=== PATIENT | female | born 2000 | race American Indian/Alaskan Native ===

== ENCOUNTER 2021-01-10 17:02 | Outpatient (CLI) | payer MEDICAID ==
[2021-01-10] MEDS: TERBUTALINE 1 MG/1 ML INJ SUB-Q SCH ×3 (18:20→20:15)
[2021-01-10 22:05] VITALS: BP 126/69
== END 2021-01-10 22:02 | disposition home or self-care (01) ==
LOC: TRG 17:02 → APU 17:10 → TRG 22:02
PROVIDERS: ATTEND Obstetrics & Gynecology
DX: O62.9 Abnormality of forces of labor, unspecified (principal); Z3A.36 36 weeks gestation of pregnancy
CPT/HCPCS: 59025; 96372; J3105

== ENCOUNTER 2021-01-11 03:50 | Outpatient (CLI) | payer MEDICAID ==
[2021-01-11] MEDS ORDERED: LACTATED RINGERS 1,000 ML IV ONE (05:42)
[2021-01-12 16:12] VITALS: BP 105/69
== END 2021-01-11 07:26 | disposition home or self-care (01) ==
LOC: TRG 03:50 → APU 04:04 → TRG 07:26
PROVIDERS: ATTEND Obstetrics & Gynecology
DX: O62.9 Abnormality of forces of labor, unspecified (principal); Z3A.36 36 weeks gestation of pregnancy
CPT/HCPCS: 59025; 96360; J7120

== ENCOUNTER 2021-01-12 16:15 | Outpatient (CLI) | payer MEDICAID ==
[2021-01-12 17:02] VITALS: BP 105/69
[2021-01-12] MEDS ORDERED: LACTATED RINGERS 1,000 ML IV ONE (18:00)
--- NOTE | 2021-01-12 18:26 | Ultrasound Report ---
ULTRASOUND OBSTETRIC LIMITED ULTRASOUND BIOPHYSICAL PROFILE INDICATION / CLINICAL INFORMATION: FAHAD. well-being. Decreased motion. Clinical Gestational Age (GA) in weeks, days: 36, 3 TECHNIQUE: Transabdominal. COMPARISON: None available. FINDINGS: BREATHING MOVEMENT = 2 GROSS BODY MOVEMENT = 2 TONE = 2 QUALITATIVE AMNIOTIC FLUID VOLUME = 2 TOTAL BIOPHYSICAL SCORE = 8/8 HEART RATE (beats per minute): 149 AMNIOTIC FLUID INDEX (cm) = 10.9 (normal = 7-24 cm) PRESENTATION: Cephalic. ADDITIONAL FINDINGS: Placenta is right anterior with no acute abnormality. IMPRESSION: 1. Biophysical Score = 8/8 2. No acute sonographic abnormality. Signer Name: Britt Richter MD Signed: 01/12/2021 6:22 PM Workstation Name: [id number]
[2021-01-12 18:31] LABS: Amphetamine Screen,Urine Negative; Benzodiazepines Screen,Urine Negative; Cannabinoid Screen,Urine Negative; Cocaine Screen,Urine Negative; Methadone Screen,Urine Negative; Opiate Screen,Urine Negative
--- NOTE | 2021-01-12 20:12 | Ultrasound Report ---
Please see combined report earlier today dictated by Dr. Richter. Signer Name: Manny Nieves MD Signed: 01/12/2021 8:08 PM Workstation Name: [id number]
== END 2021-01-12 19:21 | disposition home or self-care (01) ==
LOC: TRG 16:15 → APU 16:19 → TRG 19:21
PROVIDERS: ATTEND Obstetrics & Gynecology
DX: O36.8130 Decreased fetal movements, third trimester, not applicable or unspecified (principal); O47.03 False labor before 37 completed weeks of gestation, third trimester; Z3A.36 36 weeks gestation of pregnancy
CPT/HCPCS: 59025; 76815; 76819; 80307

== ENCOUNTER 2021-01-28 15:52 | Inpatient (IN) | payer MEDICAID ==
[2021-01-28] MEDS ORDERED: miSOPROStol 25 MCG TAB VG PRN (16:00)
[2021-01-28] MEDS ORDERED: miSOPROStol 200 MCG TAB PR PRN (17:39)
[2021-01-28] MEDS ORDERED: ePHEDrine SULFATE 50 MG/1 ML INJ IV PRN (17:39)
[2021-01-28] MEDS ORDERED: CARBOPROST TROMETHAMINE 250 MCG/1 ML INJ IM PRN (17:39)
[2021-01-28] MEDS ORDERED: TERBUTALINE 1 MG/1 ML INJ SUB-Q PRN (17:39)
[2021-01-28] MEDS ORDERED: METHYLERGONOVINE MALEATE 0.2 MG/ML VIAL IM PRN (17:39)
[2021-01-28] MEDS ORDERED: miSOPROStol 25 MCG TAB VAGINAL PRN (17:39)
[2021-01-28] MEDS ORDERED: BUTORPHANOL 2 MG/1 ML INJ IV PRN ×2 (17:39)
[2021-01-28] MEDS ORDERED: MINERAL OIL 30 ML ORAL LIQD PO PRN (17:39)
[2021-01-28] MEDS ORDERED: LOPERAMIDE 2 MG CAP PO PRN (17:39)
[2021-01-28] MEDS ORDERED: LIDOCAINE (2%) 20 MG/1 ML VIAL 20 ML MDV INFILTRATI ONE (17:39)
[2021-01-28] MEDS ORDERED: ACETAMINOPHEN 325 MG TAB PO PRN (17:39)
[2021-01-28] MEDS ORDERED: OXYTOCIN 10 UNIT/1 ML INJ IM PRN (17:39)
--- NOTE | 2021-01-28 17:46 | History and Physical Report ---
History of Present Illness Date of examination: 01/28/21 Chief complaint: leakage of fluid History of present illness: 21 yo G1 at 38w5d (RAJANI 02/06/21) c/b SMA carrier, FH autism presenting with rupture of membranes, clear fluid. ROMPLUS pos. Intermittent contractions. Denies VB. +FM. Denies PIH symptoms. PNC reviewed O pos, Ab neg HBSAG NR, HIV NR, Rubella immunes, RPR neg, varicella immune, GCCT neg H/H 12.5/37.9 SMA carrier GBS neg Past History Past Medical History: no pertinent history Past Surgical History: no surgical history Family/Genetic History: none Social history: no significant social history - Obstetrical History Expected Date of Delivery: 02/06/21 Actual Gestation: 38 Week(s) 5 Day(s) : 1 Medications and Allergies Allergies Allergy/AdvReac Type Severity Reaction Status Date / Time tomato Allergy Severe Anaphylaxis Verified 01/12/21 16:59 Review of Systems All systems: negative (except HPI) - Vital Signs Vital signs: Vital Signs Pulse BP 88 123/77 01/28/21 16:14 01/28/21 16:14 Temp Pulse Resp BP Pulse Ox 98.1 F 77 22 123/77 100 01/28/21 16:18 01/28/21 17:40 01/28/21 16:18 01/28/21 16:18 01/28/21 17:40 - Obstetrical FHR: category 1 Uterine Contraction Monitor Mode: External Cervical Dilatation: 0.5 Uterine Contraction Pattern: Irregular Results Abnormal lab results 01/28/21 Range/Units 16:30 Membranes Rupture Positive A (Negative) All other labs normal. Assessment and Plan - Patient Problems (1) PROM (premature rupture of membranes) Current Visit: Yes Status: Acute Plan to address problem: Proceed with cytotec for cervical ripening for PROM, then pitocin --GBS neg --IV pain medication as needed, epidural is available --Anticipate
[2021-01-28] MEDS ORDERED: OXYTOCIN DRIP 30 UNITS/500 ML BAG IV SCH ×2 (18:00)
[2021-01-28 18:43] LABS: Hematocrit 34.7 % (30.3-42.9); Hemoglobin 11.8 gm/dl (10.1-14.3); Mean Corpuscular HGB Conc 34 % (30-34); Mean Corpuscular Volume 87 fl (79-97); Platelet Count 193 K/mm3 (140-440); Red Blood Count 3.98 M/mm3 (3.65-5.03); Red Cell Distribution Width 14.9 % (13.2-15.2)
[2021-01-28] MEDS: LACTATED RINGERS 1,000 ML IV SCH (23:05)
[2021-01-29 08:15] LABS: Hematocrit 34.2 % (30.3-42.9); Hemoglobin 11.7 gm/dl (10.1-14.3); Mean Corpuscular HGB Conc 34 % (30-34); Mean Corpuscular Volume 84 fl (79-97); Platelet Count 176 K/mm3 (140-440); Red Blood Count 4.05 M/mm3 (3.65-5.03)
[2021-01-29] MEDS ORDERED: AMPICILLIN/NS 2 GM/100 ML 2 GM/100 ML BAG IV ONE (08:36)
[2021-01-29] MEDS ORDERED: AMPICILLIN 1,000 MG in SODIUM CHLORIDE 0.9% 50 ML IV SCH (09:00)
--- NOTE | 2021-01-29 09:21 | Progress Note ---
Assessment and Plan A: IUP@ 38 wks with PROM GBS unknown CAT II FHT P: Continue monitoring Start Ampicillin per GBS protocal IFM/IUPC placed Pain med/Epidural prn Anticipate Dr Angel consulted Subjective - Subjective Date of service: 01/29/21 Principal diagnosis: IUP@term with PROM Patient reports: loss of fluid, movement normal, contractions Objective - Vital Signs Vital Signs: Vital Signs - 12hr 01/28/21 01/28/21 01/28/21 21:18 21:23 21:30 Temperature Pulse Rate 61 65 Respiratory Rate Blood Pressure O2 Sat by Pulse 99 99 96 Oximetry 01/28/21 01/28/21 01/28/21 21:35 21:40 21:45 Temperature Pulse Rate 84 88 106 H Respiratory Rate Blood Pressure O2 Sat by Pulse 99 100 99 Oximetry 01/28/21 01/28/21 01/28/21 21:50 21:55 22:00 Temperature Pulse Rate 62 64 53 L Respiratory Rate Blood Pressure O2 Sat by Pulse 100 99 100 Oximetry 01/28/21 01/28/21 01/28/21 22:05 22:10 22:15 Temperature Pulse Rate 57 L 60 58 L Respiratory Rate Blood Pressure O2 Sat by Pulse 100 99 100 Oximetry 01/28/21 01/28/21 01/28/21 22:20 22:25 22:30 Temperature Pulse Rate 60 64 60 Respiratory Rate Blood Pressure O2 Sat by Pulse 100 100 100 Oximetry 01/28/21 01/28/21 01/28/21 22:35 22:40 22:45 Temperature Pulse Rate 65 69 71 Respiratory Rate Blood Pressure O2 Sat by Pulse 100 100 100 Oximetry 01/28/21 01/28/21 01/28/21 22:50 22:57 23:02 Temperature Pulse Rate 79 74 73 Respiratory Rate Blood Pressure O2 Sat by Pulse 100 100 100 Oximetry 01/28/21 01/28/21 01/28/21 23:07 23:12 23:17 Temperature Pulse Rate 71 74 59 L Respiratory Rate Blood Pressure O2 Sat by Pulse 100 100 100 Oximetry 01/28/21 01/28/21 01/28/21 23:22 23:27 23:32 Temperature Pulse Rate 65 64 76 Respiratory Rate Blood Pressure O2 Sat by Pulse 100 99 100 Oximetry 01/28/21 01/28/21 01/28/21 23:37 23:42 23:49 Temperature Pulse Rate 74 69 83 Respiratory Rate Blood Pressure O2 Sat by Pulse 100 100 98 Oximetry 01/28/21 01/28/21 01/29/21 23:54 23:59 00:00 Temperature 98.1 F Pulse Rate 70 71 Respiratory 16 Rate Blood Pressure O2 Sat by Pulse 98 100 Oximetry 01/29/21 01/29/21 01/29/21 00:04 00:09 00:14 Temperature Pulse Rate 66 69 69 Respiratory Rate Blood Pressure 124/65 O2 Sat by Pulse 99 99 99 Oximetry 01/29/21 01/29/21 01/29/21 00:19 00:24 00:29 Temperature Pulse Rate 91 H 64 73 Respiratory Rate Blood Pressure O2 Sat by Pulse 100 100 100 Oximetry 01/29/21 01/29/21 01/29/21 00:34 00:39 00:44 Temperature Pulse Rate 67 67 70 Respiratory Rate Blood Pressure O2 Sat by Pulse 100 100 100 Oximetry 01/29/21 01/29/21 01/29/21 00:49 00:54 00:59 Temperature Pulse Rate 70 92 H 65 Respiratory Rate Blood Pressure O2 Sat by Pulse 99 100 100 Oximetry 01/29/21 01/29/21 01/29/21 01:06 01:11 01:16 Temperature Pulse Rate 74 63 58 L Respiratory Rate Blood Pressure O2 Sat by Pulse 100 100 100 Oximetry 01/29/21 01/29/21 01/29/21 01:21 01:26 01:31 Temperature Pulse Rate 55 L 60 71 Respiratory Rate Blood Pressure O2 Sat by Pulse 100 100 100 Oximetry 01/29/21 01/29/21 01/29/21 01:36 01:41 01:46 Temperature Pulse Rate 77 85 79 Respiratory Rate Blood Pressure O2 Sat by Pulse 100 100 100 Oximetry 01/29/21 01/29/21 01/29/21 01:51 01:56 02:01 Temperature Pulse Rate 79 80 78 Respiratory Rate Blood Pressure O2 Sat by Pulse 100 100 100 Oximetry 01/29/21 01/29/21 01/29/21 02:06 02:11 02:16 Temperature Pulse Rate 84 71 80 Respiratory Rate Blood Pressure O2 Sat by Pulse 99 99 99 Oximetry 01/29/21 01/29/21 01/29/21 02:21 02:26 02:31 Temperature Pulse Rate 67 81 79 Respiratory Rate Blood Pressure O2 Sat by Pulse 100 98 99 Oximetry 01/29/21 01/29/21 01/29/21 02:36 02:41 02:46 Temperature Pulse Rate 68 75 89 Respiratory Rate Blood Pressure O2 Sat by Pulse 99 99 100 Oximetry 01/29/21 01/29/21 01/29/21 02:51 02:56 03:01 Temperature Pulse Rate 59 L 72 69 Respiratory Rate Blood Pressure O2 Sat by Pulse 100 100 99 Oximetry 01/29/21 01/29/21 01/29/21 03:06 03:11 03:16 Temperature Pulse Rate 79 69 68 Respiratory Rate Blood Pressure O2 Sat by Pulse 98 100 99 Oximetry 01/29/21 01/29/21 01/29/21 03:21 03:28 03:33 Temperature Pulse Rate 54 L 66 59 L Respiratory Rate Blood Pressure O2 Sat by Pulse 100 98 98 Oximetry 01/29/21 01/29/21 01/29/21 03:38 03:42 03:43 Temperature 98.2 F Pulse Rate 57 L 53 L 58 L Respiratory Rate Blood Pressure 120/68 O2 Sat by Pulse 98 98 Oximetry 01/29/21 01/29/21 01/29/21 03:48 03:53 03:58 Temperature Pulse Rate 56 L 63 61 Respiratory Rate Blood Pressure O2 Sat by Pulse 99 99 99 Oximetry 01/29/21 01/29/21 01/29/21 04:04 04:09 04:14 Temperature Pulse Rate 62 53 L 56 L Respiratory Rate Blood Pressure O2 Sat by Pulse 100 99 100 Oximetry 01/29/21 01/29/21 01/29/21 04:19 04:24 04:29 Temperature Pulse Rate 56 L 53 L 54 L Respiratory Rate Blood Pressure O2 Sat by Pulse 100 99 99 Oximetry 01/29/21 01/29/21 01/29/21 04:37 04:42 04:47 Temperature Pulse Rate 58 L 55 L 56 L Respiratory Rate Blood Pressure O2 Sat by Pulse 100 99 98 Oximetry 01/29/21 01/29/21 01/29/21 04:52 04:57 05:02 Temperature Pulse Rate 60 57 L 53 L Respiratory Rate Blood Pressure O2 Sat by Pulse 98 99 98 Oximetry 01/29/21 01/29/21 01/29/21 05:07 05:12 05:17 Temperature Pulse Rate 56 L 55 L 59 L Respiratory Rate Blood Pressure O2 Sat by Pulse 98 99 99 Oximetry 01/29/21 01/29/21 01/29/21 05:22 05:27 05:32 Temperature Pulse Rate 56 L 59 L 57 L Respiratory Rate Blood Pressure O2 Sat by Pulse 99 98 99 Oximetry 01/29/21 01/29/21 01/29/21 05:37 05:42 05:47 Temperature Pulse Rate 60 57 L 58 L Respiratory Rate Blood Pressure O2 Sat by Pulse 98 98 98 Oximetry 01/29/21 01/29/21 01/29/21 05:52 05:57 06:02 Temperature Pulse Rate 59 L 65 90 Respiratory Rate Blood Pressure O2 Sat by Pulse 98 100 100 Oximetry 01/29/21 01/29/21 01/29/21 06:07 06:12 06:17 Temperature Pulse Rate 66 61 68 Respiratory Rate Blood Pressure O2 Sat by Pulse 100 98 99 Oximetry 01/29/21 01/29/21 01/29/21 06:22 06:27 06:32 Temperature Pulse Rate 71 57 L 55 L Respiratory Rate Blood Pressure O2 Sat by Pulse 99 99 99 Oximetry 01/29/21 01/29/21 01/29/21 06:37 06:42 06:47 Temperature Pulse Rate 78 73 63 Respiratory Rate Blood Pressure O2 Sat by Pulse 99 99 100 Oximetry 01/29/21 01/29/21 01/29/21 06:52 06:57 07:02 Temperature Pulse Rate 81 63 81 Respiratory Rate Blood Pressure O2 Sat by Pulse 100 99 100 Oximetry 01/29/21 01/29/21 01/29/21 07:07 07:12 07:15 Temperature 98.8 F Pulse Rate 78 79 Respiratory 18 Rate Blood Pressure O2 Sat by Pulse 99 100 99 Oximetry 01/29/21 01/29/21 01/29/21 07:17 07:22 07:27 Temperature Pulse Rate 87 75 75 Respiratory Rate Blood Pressure O2 Sat by Pulse 99 99 99 Oximetry 01/29/21 01/29/21 01/29/21 07:32 07:37 07:42 Temperature Pulse Rate 72 71 65 Respiratory Rate Blood Pressure O2 Sat by Pulse 100 98 100 Oximetry 01/29/21 01/29/21 01/29/21 07:48 07:50 07:53 Temperature Pulse Rate 86 70 Respiratory 18 Rate Blood Pressure O2 Sat by Pulse 100 98 Oximetry 01/29/21 01/29/21 01/29/21 07:54 07:58 08:01 Temperature Pulse Rate 69 62 68 Respiratory Rate Blood Pressure 138/88 O2 Sat by Pulse 99 91 Oximetry 01/29/21 01/29/21 01/29/21 08:03 08:06 08:08 Temperature Pulse Rate 60 65 66 Respiratory Rate Blood Pressure O2 Sat by Pulse 97 92 99 Oximetry 01/29/21 01/29/21 01/29/21 08:13 08:18 08:23 Temperature Pulse Rate 65 72 67 Respiratory Rate Blood Pressure O2 Sat by Pulse 98 98 97 Oximetry 01/29/21 01/29/21 01/29/21 08:28 08:33 08:38 Temperature Pulse Rate 65 68 73 Respiratory Rate Blood Pressure O2 Sat by Pulse 97 97 98 Oximetry 01/29/21 01/29/21 01/29/21 08:43 08:48 08:53 Temperature Pulse Rate 85 84 76 Respiratory Rate Blood Pressure O2 Sat by Pulse 100 100 100 Oximetry 01/29/21 01/29/21 01/29/21 08:54 08:58 09:03 Temperature Pulse Rate 82 77 72 Respiratory Rate Blood Pressure 134/83 O2 Sat by Pulse 100 99 Oximetry 01/29/21 01/29/21 09:08 09:13 Temperature Pulse Rate 82 81 Respiratory Rate Blood Pressure O2 Sat by Pulse 100 100 Oximetry - Exam Breasts: normal Abdomen: Present: normal appearance, soft, normal bowel sounds, other (GRAVID) Vulva: both: normal Uterus: Present: normal FHR: category 2 FHR comments: FHT 140 with mod [id number] repetitive late decels Uterine Contraction Monitor Mode: External Cervical Dilatation: 2 Cervical Effacement Percentage: 60 station: -3 Uterine Contraction Pattern: Regular Uterine Tone Measurement Phase: Resting Uterine Contraction Intensity: Moderate Extremities: normal - Labs Labs: Abnormal Labs 01/28/21 01/29/21 16:30 07:10 RDW 13.0 L Membranes Rupture Positive A Laboratory Results - last 24 hr 01/28/21 01/28/21 01/28/21 16:30 17:53 17:53 WBC 8.3 RBC 3.98 Hgb 11.8 Hct 34.7 MCV 87 MCH 30 MCHC 34 RDW 14.9 Plt Count 193 Membranes Rupture Positive A Blood Type A POSITIVE Antibody Screen Negative 01/28/21 01/29/21 22:30 07:10 WBC 9.1 RBC 4.05 Hgb 11.7 Hct 34.2 MCV 84 MCH 29 MCHC 34 RDW 13.0 L Plt Count 176 Membranes Rupture Blood Type O POSITIVE Antibody Screen Negative
--- NOTE | 2021-01-29 09:48 | Event Note ---
Date: 01/29/21 FHT CAT I after resuscitative measures were taken. Will continue monitoring and restart Pitocin after 30 min if FHT remains a CAT I. Dr Angel was consulted.
[2021-01-29] MEDS: LACTATED RINGERS 1,000 ML IV SCH ×4 (10:00→23:59)
--- NOTE | 2021-01-29 13:16 | Anesthesia Consultation ---
Anesthesia Consult and Med Hx Date of service: 01/29/21 - Airway Anesthetic Teeth Evaluation: Good ROM Head & Neck: Adequate Mental/Hyoid Distance: Adequate Mallampati Class: Class II Intubation Access Assessment: Good - Pulmonary Exam CTA: Yes - Cardiac Exam Cardiac Exam: RRR - Pre-Operative Health Status ASA Pre-Surgery Classification: ASA2 Proposed Anesthetic Plan: Epidural - Pulmonary Hx Smoking: No Hx Asthma: No Hx Respiratory Symptoms: No SOB: No COPD: No Home Oxygen Therapy: No Hx Pneumonia: No Hx Sleep Apnea: No - Cardiovascular System Hx Hypertension: No Hx Coronary Artery Disease: No Hx Heart Attack/AMI: No Hx Angina: No Hx Percutaneous Transluminal Coronary Angioplasty (PTCA): No Hx Cardia Arrhythmia: No Hx Pacemaker: No Hx Internal Defibrillator: No Hx Valvular Heart Disease: No Hx Heart Murmur: No Hx Peripheral Vascular Disease: No - Central Nervous System Hx Neuromuscular Disorder: No Hx Seizures: No CVA: No Hx Back Pain: Yes Hx Psychiatric Problems: No - Gastrointestinal Hx Ulcer: No Hx Gastroesophageal Reflux Disease: Yes - Endocrine Hx Renal Disease: No Hx End Stage Renal Disease: No Hx Cirrhosis: No Hx Liver Disease: No Hx Insulin Dependent Diabetes: No Hx Non-Insulin Dependent Diabetes: No Hx Thyroid Disease: No Hx Hypothyroidism: No Hx Hyperthyroidism: No - Hematic Hx Anemia: No Hx Sickle Cell Disease: No - Other Systems Hx Alcohol Use: No Hx Substance Use: No Hx Cancer: No Hx Obesity: No
[2021-01-29] MEDS ORDERED: ePHEDrine SULFATE 50 MG/1 ML INJ IV PRN (13:30)
[2021-01-29] MEDS ORDERED: fentaNYL-BUPIV 2 MCG/ML-0.125% 200 MCG/100 ML BAG EPIDURAL SCH (14:00)
[2021-01-29] MEDS ORDERED: NALOXONE 2 MG/2 ML INJ IV PRN (14:00)
[2021-01-29] MEDS: AMPICILLIN/NS 1 GM/50 ML 1 GM/50 ML BAG IV SCH ×2 (14:21→18:07)
[2021-01-29] MEDS ORDERED: SODIUM CHLORIDE 0.9% 1000 ML 1,000 ML ONE (17:55)
--- NOTE | 2021-01-29 17:55 | Event Note ---
Date: 01/29/21 pt evaluated at bedside with nurses and parents in the room. FHR category I. Pelvic 360/-3 vtx and IUPC not working with blood in the chamber. Ctx irregular at this time. Same replaced. Will restart pitocin and give amnioinfusion. Continue antibiotics for prolong rupture of membranes. Discussed alternate route of delivery with section for which pt declines at this time. The risks, benefits and alternatives of vaginal vs section discussed. All questions encouraged and answered.
[2021-01-29] MEDS ORDERED: SODIUM CHLORIDE 0.9% 1000 ML 1,000 ML VG SCH (18:15)
[2021-01-29] MEDS ORDERED: METOCLOPRAMIDE 10 MG/2 ML INJ IV ONE (18:44)
[2021-01-29] MEDS ORDERED: LACTATED RINGERS 1,000 ML IV SCH (18:45)
[2021-01-29] MEDS ORDERED: ceFAZolin/Water 2 GM/20 ML 2 GM/20 ML SYRINGE IV ONE (18:52)
[2021-01-29] MEDS ORDERED: LIDOCAINE 2%/EPINEPHRINE 1:200,000 VIAL (20 ML) INFILTRATI ONE (18:54)
[2021-01-29] MEDS ORDERED: OXYTOCIN DRIP 30 UNITS/500 ML BAG IV SCH ×2 (19:00→22:55)
[2021-01-29] MEDS ORDERED: WATER FOR IRRIG STERILE 1,500 ML BOTTLE IR ONE (19:00)
[2021-01-29] MEDS ORDERED: FAMOTIDINE 20 MG/2 ML INJ IV ONE (19:00)
[2021-01-29] MEDS ORDERED: BICITRA ORAL LIQD 30ML PO ONE (19:00)
[2021-01-29] MEDS ORDERED: ceFAZolin/STERILE WATER 2 GM/20 ML SYRINGE IV ONE (19:00)
[2021-01-29] MEDS ORDERED: SODIUM CHLORIDE 0.9% IRR 1,500 ML BOTTLE IR ONE (19:00)
[2021-01-29] MEDS ORDERED: ONDANSETRON 4 MG/2 ML INJ ONE ×3 (19:05→20:38)
[2021-01-29] MEDS ORDERED: BUPIVACAINE/PF (0.25%) 2.5 MG/ML 30 ML VIAL INFILTRATI ONE ×2 (19:30)
[2021-01-29] MEDS ORDERED: dexAMETHasone 20 MG/5 ML VIAL ONE (19:36)
[2021-01-29] MEDS ORDERED: KETOROLAC 30 MG/1 ML INJ ONE (19:48)
--- NOTE | 2021-01-29 20:36 | XRay Report ---
ABDOMEN 1 VIEW 01/29/2021 INDICATION / CLINICAL INFORMATION: OR NO FIRST COUNT; instrument count. COMPARISON: None available. FINDINGS: TUBES / LINES: None. BOWEL GAS PATTERN: No significant abnormality. FREE AIR / EXTRALUMINAL GAS: None seen. ADDITIONAL FINDINGS: No significant additional findings. IMPRESSION: 1. No foreign radiodensities seen within the field of view Signer Name: Luis Barrera DO Signed: 01/29/2021 8:31 PM Workstation Name: [id number]
--- NOTE | 2021-01-29 20:44 | Progress Note ---
Spinal Anesthesia Block - Spinal Anesthesia Block Start Time: 20:30 Stop Time: 20:38 Performed by:: MARCUS SAMUELS Procedure: Patient consented for TAP block for post surgical pain management. Patient identified, monitors placed, and time out performed. TAP identified bilaterally via ultrasound. Skin prepped bilaterally with [chlorhexidine] and [22g stimuplex] needle advanced to the TAP. [Marcaine 0.25% 30ml] injected under ultrasound guidance on the [left] side. [Marcaine 0.25% 30ml] injected under ultrasound guidance on the [right] side. Negative aspiration every 5mL, No change in heart rate or rhythm. Patient tolerated the procedure well. No apparent complications seen.
--- NOTE | 2021-01-29 22:28 | Event Note ---
Date: 01/29/21 This is a late entry. Nurse called me to bedside for NRFHR. Order given by me for brethine 0.2mg SC and pt told that alternate route of delivery necessary with category III FHR. All questions encouraged and answered and consents signed. NICU and anesthesia team notified and I went to scrub for emergent section with nursing staff coming with patient. FHR repeated in the OR was in the 140's by doppler. This was shift change and I told the staff that KUB to be done post delivery with this emergent surgery.
--- NOTE | 2021-01-29 22:50 | Procedure Note ---
OB Delivery Note - Delivery Date of Delivery: 01/29/21 Surgeon: BIRDIE CHAUDHRY Estimated blood loss: other (QBL 784cc per Shonda's report) - Section Preop diagnosis: nonreassuring FHR tracing Postop diagnosis: same section procedure: primary low transverse Disposition: floor Complications: none Narrative: Date: 01/29/21 Surgeon: Birdie Chaudhry MD Preop Dx: IUP at term, Category III FHR remote from delivery with cervix 3/70/-3 vtx, prolong rupture of membranes Postop Dx: same Procedure : Emergent Primary Low Transverse Section Anesthesia: Epidural Intake: 700cc crystalloids Output: 200cc clear urine EBL: 782cc After the risks, benefits and alternatives of procedure discussed, patient signed consents and was taken to the operating room. Pt was given epidural anesthesia. After same was adequate, patient was prepped and draped in the usual sterile fashion. Man catheter was already in place and draining clear urine. Pt was given prophylactic antibiotic per protocol and time out was done Pfannenstiel skin incision was made and taken sharply to the fascia and the incision extended manually and using scissors. Superior edge of the fascia was grasped with gisela clamps and the rectus muscle using blunt dissection. Lower portion of the fascia also sharply. Rectus muscle in the midline and Peritoneal cavity entered bluntly and extended with good visualization of the bladder. Bladder blade was placed. The bladder flap w as created sharply using metzenbaum scissors. Lower uterine segment then entered transversely and amniotic sac entered manually. Uterine incision extended manually. delivered, bulb suctioned, cord clamped and baby had a strong cry on the OR table and then was handed to waiting pediatricians. Placenta then delivered completely and uterine cavity cleared of all clots and debri. The uterus was exteriorized and closed in 2 layers using 0-monocryl suture in a running locked fashion and then an additional layer of interrupted figure of sutures placed. Hemoblast placed and Excellent hemostasis noted. The gutters were cleared of clots and debri and anterior peritoneum closed using 3-0 vicryl suture and rectus muscle reapproximated using 0-vicryl suture. Rectus fascia closed with 0-vicryl suture continuously and subcutaneous tissue copiously irrigated with normal saline and re-approximated using 3-0 vicryl suture. Excellent hemostasis remains. Blue towel placed and Xray attempted to do KUB however was unable to do so without assistance, hence the skin was closed with 3-0 monocryl suture and steristrips placed. I assisted the Xray traffic signal technician and KUB was done. Pressure dressing was then applied using aseptic technique. Patient tolerated the procedure well and was taken to recovery room stable. Pt given cytotec 800mcg per rectum and methergine IM intraoperatively for uterine atony. Findings: Viable female infant, APGARS 4/4/4/7 after 1st NICU team came and took some time before they later called for assist back up NICU team who further treated infant diagnosing obstructed airway and further suctioning; I sent umbilical artery pH 7.19 and BE -5.8 drawn by circulating nurse Shonda; weight 2680g. Normal uterus, tubes and ovaries. Pathology: placenta - A at 1 minute: 4 at 5 minutes: 4 (apgars 4/4/4/7 and wt 2680g) Infant Gender: Female
[2021-01-29] MEDS ORDERED: LANOLIN/ZINC/DIMETHICONE (LANSINOH) 7 GM TP PRN (22:55)
[2021-01-29] MEDS ORDERED: IBUPROFEN 800 MG TAB PO PRN (22:55)
[2021-01-29] MEDS ORDERED: ONDANSETRON 4 MG/2 ML INJ IV PRN (22:55)
[2021-01-29] MEDS ORDERED: NALOXONE 0.4 MG/1 ML INJ IV PRN (22:55)
[2021-01-29] MEDS ORDERED: oxyCODONE /ACETAMINOPHEN 5-325MG TAB PO PRN (22:55)
[2021-01-29] MEDS ORDERED: MAGNESIUM HYDROXIDE (MOM) ORAL LIQD UDC PO PRN (22:55)
[2021-01-29] MEDS ORDERED: WITCH HAZEL/ GLYCERIN PAD TP PRN (22:55)
[2021-01-29] MEDS ORDERED: SIMETHICONE 80 MG CHEW TAB PO PRN (22:55)
[2021-01-29] MEDS ORDERED: MORPHINE 2 MG/1 ML INJ IV PRN (23:25)
--- NOTE | 2021-01-29 23:30 | Event Note ---
Date: 01/29/21 I called the nurse to check on patient on . nurse states pt c/o pain and talking on the phone. Morphine 2mg IV prn every 4hrs given and nurse instructed only to give if pt is in severe pain. nurse also states that pt had a fever of 100.9 and therefore triple antibiotics amp/gent/clinda for endomyometritis most likely with prolong rupture of membranes. Urine output satisfactory. Nurse also states that pt had elevated BP without headache for which I told the nurse, pt received methergine x1 dose in the OR for uterine atony.
[2021-01-29] MEDS: AMPICILLIN/NS 2 GM/100 ML 2 GM/100 ML BAG IV SCH (23:59)
[2021-01-30] MEDS: KETOROLAC 30 MG/1 ML INJ IV PRN ×2 (01:06→08:32)
[2021-01-30] MEDS: GENTAMICIN 300 MG in SODIUM CHLORIDE 0.9% 100 ML IV SCH (02:54)
[2021-01-30] MEDS: AMPICILLIN/NS 2 GM/100 ML 2 GM/100 ML BAG IV SCH ×3 (06:15→18:04)
--- NOTE | 2021-01-30 06:44 | Event Note ---
Date: 01/30/21 pt vitals seen and BP trending upwards. I called the nurse who states that the BP has been trending upwards and pt medicated twice for pain. PIH labs placed and labetalol 100mg bid ordered. Routine care.
--- NOTE | 2021-01-30 09:11 | Progress Note ---
Assessment and Plan POD # 1 A: S/P Primary LTCS PIH Endometritis p: Continue routine pp care Awaiting H&H & PIH labs Continue Labetalol and ABT as ordered D/C home with 24-48 hrs if stable Subjective - Subjective Date of service: 01/30/21 Principal diagnosis: IUP@term with PROM Patient reports: appetite normal, voiding normally, pain well controlled, flatus [place]: doing well, nursing well Objective - Vital Signs Latest vital signs: Vital Signs Temp Pulse Resp BP Pulse Ox 01/30/21 08:32 16 01/30/21 08:31 75 144/87 01/30/21 06:01 98.7 F 58 L 16 166/80 99 01/30/21 03:38 18 01/30/21 01:39 98.1 F 68 18 162/94 100 01/30/21 01:06 18 01/29/21 23:21 98.4 F 01/29/21 23:13 76 157/82 98 01/29/21 22:20 100.9 F H 76 151/83 97 01/29/21 21:35 99.7 F H 90 16 125/72 01/29/21 21:20 81 17 142/73 01/29/21 21:05 81 16 127/80 01/29/21 20:50 95 H 22 124/70 01/29/21 20:45 98 H 18 121/51 01/29/21 20:40 123 H 12 140/83 01/29/21 20:35 98.3 F 107 H 16 119/56 01/29/21 18:38 55 L 100 01/29/21 18:36 47 L 127/60 01/29/21 18:33 59 L 100 01/29/21 18:29 69 92 01/29/21 18:28 59 L 100 01/29/21 18:23 60 100 01/29/21 18:20 67 105/68 01/29/21 18:18 67 100 01/29/21 18:13 68 100 01/29/21 18:08 86 99 01/29/21 18:05 62 108/54 01/29/21 18:03 68 99 01/29/21 17:58 61 98 01/29/21 17:53 78 99 01/29/21 17:48 100 H 100 01/29/21 17:43 86 100 01/29/21 17:38 58 L 99 01/29/21 17:35 56 L 125/70 01/29/21 17:33 56 L 98 01/29/21 17:28 55 L 98 01/29/21 17:23 59 L 98 01/29/21 17:20 62 99/62 01/29/21 17:18 53 L 99 01/29/21 17:13 72 100 01/29/21 17:08 74 100 01/29/21 17:05 76 102/61 01/29/21 17:03 79 99 01/29/21 16:58 74 99 01/29/21 16:53 78 99 01/29/21 16:50 86 107/64 01/29/21 16:48 96 H 99 01/29/21 16:43 87 99 01/29/21 16:38 75 99 01/29/21 16:35 77 106/62 01/29/21 16:33 79 99 01/29/21 16:28 70 100 01/29/21 16:23 63 100 01/29/21 16:21 98.4 F 14 100 01/29/21 16:18 63 100 01/29/21 16:13 56 L 99 01/29/21 16:08 74 143/70 100 01/29/21 16:03 63 99 01/29/21 15:58 60 100 01/29/21 15:53 54 L 99 01/29/21 15:52 56 L 132/65 01/29/21 15:48 52 L 100 01/29/21 15:43 53 L 100 01/29/21 15:38 61 132/78 100 01/29/21 15:33 56 L 100 01/29/21 15:28 62 100 01/29/21 15:23 56 L 100 01/29/21 15:22 55 L 137/71 01/29/21 15:18 54 L 100 01/29/21 15:13 54 L 100 01/29/21 15:08 48 L 100 01/29/21 15:07 48 L 122/63 01/29/21 15:03 81 116/79 98 01/29/21 15:00 72 109/59 01/29/21 14:58 73 103/59 99 01/29/21 14:56 75 102/60 01/29/21 14:54 82 103/61 01/29/21 14:53 77 99 01/29/21 14:52 79 105/63 01/29/21 14:50 76 105/66 01/29/21 14:48 72 107/66 99 01/29/21 14:46 72 107/68 01/29/21 14:44 62 110/70 01/29/21 14:43 69 99 01/29/21 14:42 74 103/70 01/29/21 14:40 67 110/64 01/29/21 14:38 69 111/79 100 01/29/21 14:36 59 L 96/53 01/29/21 14:34 60 104/56 01/29/21 14:33 60 98 01/29/21 14:32 63 98/56 01/29/21 14:30 67 102/52 01/29/21 14:28 62 113/63 98 01/29/21 14:26 87 104/61 01/29/21 14:24 66 110/63 01/29/21 14:23 81 98 01/29/21 14:22 70 105/64 01/29/21 14:20 74 107/64 01/29/21 14:18 77 107/63 98 01/29/21 14:16 69 110/77 01/29/21 14:14 68 118/79 01/29/21 14:13 69 100 01/29/21 14:12 63 122/72 01/29/21 14:10 61 120/66 01/29/21 14:08 64 134/67 99 01/29/21 14:06 71 128/79 01/29/21 14:04 68 122/73 01/29/21 14:03 75 99 01/29/21 14:02 68 118/69 01/29/21 14:00 78 119/72 01/29/21 13:58 69 123/75 100 01/29/21 13:56 74 119/73 01/29/21 13:55 68 117/69 01/29/21 13:53 77 100 01/29/21 13:52 73 125/72 01/29/21 13:50 101 H 145/85 01/29/21 13:48 80 139/76 99 01/29/21 13:46 75 146/80 01/29/21 13:44 71 147/84 01/29/21 13:43 70 100 01/29/21 13:38 81 143/81 100 01/29/21 13:33 83 99 01/29/21 13:28 71 100 01/29/21 13:23 70 100 01/29/21 13:18 101 H 100 01/29/21 13:13 85 100 01/29/21 13:08 55 L 100 01/29/21 13:03 75 100 01/29/21 12:58 64 97 01/29/21 12:54 63 131/78 01/29/21 12:53 63 100 01/29/21 12:51 67 92 01/29/21 12:48 65 99 01/29/21 12:43 71 100 01/29/21 12:38 76 100 01/29/21 12:33 61 100 01/29/21 12:28 60 99 01/29/21 12:23 58 L 100 01/29/21 12:20 67 91 01/29/21 12:18 68 100 01/29/21 12:13 63 99 01/29/21 12:08 77 100 01/29/21 12:03 77 100 01/29/21 11:58 63 99 01/29/21 11:54 57 L 122/61 01/29/21 11:53 63 99 01/29/21 11:48 61 99 01/29/21 11:46 98.0 F 01/29/21 11:43 63 100 01/29/21 11:38 62 99 01/29/21 11:33 59 L 100 01/29/21 11:28 60 99 01/29/21 11:23 67 100 01/29/21 11:18 63 100 01/29/21 11:13 76 100 01/29/21 11:08 62 99 01/29/21 11:03 71 100 01/29/21 10:58 65 99 01/29/21 10:54 61 110/59 01/29/21 10:53 65 99 01/29/21 10:48 62 99 01/29/21 10:43 63 99 01/29/21 10:38 66 99 01/29/21 10:33 62 99 01/29/21 10:28 69 99 01/29/21 10:23 65 99 01/29/21 10:18 66 100 01/29/21 10:13 70 100 01/29/21 10:08 72 99 01/29/21 10:03 69 99 01/29/21 09:58 98.0 F 76 100 01/29/21 09:55 60 148/66 01/29/21 09:53 63 100 01/29/21 09:48 66 100 01/29/21 09:43 63 100 01/29/21 09:38 61 100 01/29/21 09:33 70 100 01/29/21 09:28 76 99 01/29/21 09:23 96 H 100 01/29/21 09:18 77 100 01/29/21 09:13 81 100 01/29/21 09:08 82 100 Intake and Output 01/29/21 01/30/21 01/30/21 22:59 06:59 14:59 Intake Total 2200 1350 Output Total 1195 3800 Balance 1005 -2450 Intake: IV 2200 150 AMPICILLIN/NS 2 GM/100 ML 100 2 gm In 100 ml @ 100 mls /hr IV Q6HR EMMY Rx#: [id number] CLEOCIN 900 MG/50 mL 900 50 mg In 50 ml @ 100 mls/hr IV Q8H EMMY Rx#:[id number] Lactated Ringers 1,000 ml 1000 @ 125 mls/hr IV DIRECT EMMY Rx#:[id number] PITOCin/NS 30 UNIT/500ML 0 30 units In 500 ml @ 2 mls/hr IV TITR EMMY Rx#: [id number] Intake, Free Water 1200 Output: Urine 1195 3800 Indwelling Catheter 700 1600 Uretheral (Man) 145 Void 2200 Other: Total, Output Amount 700 1000 - Exam Breasts: Present: normal Abdomen: Present: normal appearance, soft, normal bowel sounds Vulva: both: normal Uterus: Present: normal, firm, fundal height below umbilicus Extremities: Present: normal Incision: Present: normal, dry, intact
[2021-01-30] MEDS: PRENATAL VIT27-FE FUMARATE-FOLIC ACID VIT TAB PO SCH (09:15)
[2021-01-30] MEDS: FERROUS SULFATE 325 MG TAB PO SCH (09:15)
[2021-01-30 09:47] LABS: Alanine Aminotransferase 7 units/L (7-56); Blood Urea Nitrogen 6 mg/dL (7-17); Calcium 9.3 mg/dL (8.4-10.2); Hemolysis Index 4; Uric Acid 5.1 mg/dL (3.5-7.6)
[2021-01-30 09:48] LABS: Hematocrit 33.7 % (30.3-42.9); Hemoglobin 11.5 gm/dl (10.1-14.3); Lymphocytes # (Auto) 2.7 K/mm3 (1.2-5.4); Lymphocytes % (Auto) 13.7 % (13.4-35.0); Mean Corpuscular HGB Conc 34 % (30-34); Mean Corpuscular Volume 85 fl (79-97); Monocytes # (Auto) 1.2 K/mm3 (0.0-0.8); Monocytes % (Auto) 6.2 % (0.0-7.3); Platelet Count 177 K/mm3 (140-440); Red Blood Count 3.96 M/mm3 (3.65-5.03)
[2021-01-30 09:52] LABS: BUN/Creatinine Ratio 10
[2021-01-30 14:17] LABS: Cord Art Bld Methemoglobin 1.2 mmHg; Cord Arterial Blood HCO3 22.9
[2021-01-30 14:19] LABS: Cord Venous Blood HCO3 23.8; Cord Venous Blood PO2 63.8
[2021-01-30 14:20] LABS: Cord Arterial Oxyhemoglobin 19.5
--- NOTE | 2021-01-30 14:56 | Post Anesthesia Evaluation ---
- Post Anesthesia Evaluation Patient Participated: Yes Airway Patent: Yes Stable Respiratory Function: Yes Nausea/Vomiting: No Temp > 96.8F: Yes Pain Manageable: Yes Adequeate Hydration: Yes Anesthesia Complications: No Block Receding Appropriately: Yes Patient on Ventilator: No
[2021-01-31] MEDS: AMPICILLIN/NS 2 GM/100 ML 2 GM/100 ML BAG IV SCH (00:34)
[2021-01-31] MEDS: GENTAMICIN 300 MG in SODIUM CHLORIDE 0.9% 100 ML IV SCH (02:04)
[2021-01-31] MEDS: FERROUS SULFATE 325 MG TAB PO SCH (09:54)
[2021-01-31] MEDS: PRENATAL VIT27-FE FUMARATE-FOLIC ACID VIT TAB PO SCH (09:55)
--- NOTE | 2021-01-31 12:35 | Progress Note ---
Assessment and Plan - Patient Problems (1) S/P Current Visit: Yes Status: Acute Plan to address problem: Postop day 2 status post primary for nonreassuring heart tones. Patient ports that she is doing well meeting postoperative goals. Anticipate discharge in 24 hours. (2) Endometritis Current Visit: Yes Status: Acute Plan to address problem: Status post Amp/Gent. Afebrile >24 hours, continue to monitor. Repeat CBC to trend WBC. Subjective - Subjective Date of service: 01/31/21 Principal diagnosis: IUP@term with PROM Interval history: Patient doing well meeting postoperative goals. Patient reports passing flatus. Patient denies bowel movement. Pain well controlled. Patient denies fevers and chills. Patient reports: appetite normal, voiding normally, pain well controlled, flatus : doing well Objective - Vital Signs Latest vital signs: Vital Signs Temp Pulse Resp BP BP Pulse Ox Pulse Ox 01/31/21 11:54 98.1 F 74 16 119/73 97 01/31/21 09:54 75 110/78 01/31/21 09:01 98.0 F 72 16 110/78 92 01/31/21 08:07 100 01/31/21 04:30 98.6 F 86 18 128/63 100 01/30/21 23:24 98.2 F 84 20 119/61 99 01/30/21 21:28 72 118/69 01/30/21 21:22 98.2 F 85 118/69 99 01/30/21 19:50 98 01/30/21 15:59 98.0 F 74 18 112/56 100 01/30/21 12:48 98.2 F 84 20 104/52 97 Intake and Output 01/30/21 01/31/21 01/31/21 23:59 07:59 15:59 Intake Total 750 240 240 Output Total 900 200 Balance -150 40 240 Intake: IV 150 AMPICILLIN/NS 2 GM/100 ML 100 2 gm In 100 ml @ 100 mls /hr IV Q6HR EMMY Rx#: [id number] CLEOCIN 900 MG/50 mL 900 50 mg In 50 ml @ 100 mls/hr IV Q8H EMMY Rx#:[id number] Oral 360 240 240 Intake, Free Water 240 Output: Urine 900 200 Void 900 200 Other: Total, Intake Amount 360 240 240 Total, Output Amount 400 200 # Voids Void 2 1 1 - Exam Abdomen: Present: normal appearance, normal bowel sounds Uterus: Present: firm Incision: Present: normal
--- NOTE | 2021-01-31 12:38 | Discharge Summary ---
Providers - Providers Date of Admission: 01/28/21 15:53 Date of discharge: 02/01/21 Attending physician: MANUEL SAWYER JR, MD 01/30/21 08:00 Consult to [place] Sorter [CONS] Routine Reason For Exam: Primary care physician: MANUEL SAWYER JR, MD Hospitalization Reason for admission: section, rupture of membranes Delivery: Procedure: section, primary low transverse Incision: normal Discharge diagnosis: IUP at term delivered baby: male Hospital course: Patient was admitted for prelabor rupture of membranes. Patient underwent a failed induction status post primary low transverse for nonreassuring heart tones. Fetus originally had low Apgars that improved without issue doing well in room. Hospital course complicated by endometritis status post antibiotics with resolution of fever. Patient was meeting all postoperative goals by day 3 discharge in good condition. Condition at discharge: Good Disposition: DC-01 TO HOME OR SELFCARE - Discharge Diagnoses (1) S/P Status: Acute (2) Endometritis Status: Acute Plan - Discharge Medications Prescriptions: labetaloL [Labetalol 100mg TAB] 100 mg PO BID #60 tablet Ibuprofen [Motrin 800 MG tab] 800 mg PO Q6H PRN #30 tablet PRN Reason: Pain, Moderate (4-6) oxyCODONE /ACETAMINOPHEN [Percocet 5/325 mg] 2 tab PO Q6H PRN #30 tablet PRN Reason: Pain, Moderate (4-6) - Provider Discharge Summary Additional instructions: [] Smoking cessation referral if applicable(refer to patient education folder for contact #) [] Refer to [facility] Booklet Call your doctor immediately for: * Fever > 100.5 * Heavy vaginal bleeding ( >1 pad per hour) * Severe persistent headache * Shortness of breath * Reddened, hot, painful area to leg or breast * Drainage or odor from incision. * Keep incision clean and dry at all times and follow doctor's instructions regarding bathing/showering - Follow up plan Follow up: ALEX CHAUDHRY MD [Staff Physician] - 14 Days
[2021-01-31 13:42] LABS: Basophils % (Auto) 0.3 % (0.0-1.8); Eosinophils # (Auto) 0.1 K/mm3 (0.0-0.4); Eosinophils % (Auto) 0.6 % (0.0-4.3); Hematocrit 28.5 % (30.3-42.9); Lymphocytes # (Auto) 3.8 K/mm3 (1.2-5.4); Lymphocytes % (Auto) 34.2 % (13.4-35.0); Mean Corpuscular HGB Conc 35 % (30-34); Mean Corpuscular Volume 84 fl (79-97); Monocytes # (Auto) 0.9 K/mm3 (0.0-0.8); Platelet Count 174 K/mm3 (140-440); Red Cell Distribution Width 13.1 % (13.2-15.2)
[2021-02-01] MEDS: PRENATAL VIT27-FE FUMARATE-FOLIC ACID VIT TAB PO SCH (10:04)
[2021-02-01] MEDS: FERROUS SULFATE 325 MG TAB PO SCH (10:04)
[2021-02-01 12:43] VITALS: BP 124/79
== END 2021-02-01 12:50 | disposition home or self-care (01) | DRG 765 ==
LOC: TRG 15:52 → APU 15:53 → TRG 17:39 → LD 19:49 → OB 01-29 22:36
PROVIDERS: ADMIT Obstetrics & Gynecology; ATTEND Obstetrics & Gynecology
PROC: 10D00Z1 Extraction of Products of Conception, Low, Open Approach (ICD-10-PCS; principal; 2021-01-29)
PROC: 10H07YZ Insertion of Other Device into Products of Conception, Via Natural or Artificial Opening (ICD-10-PCS; 2021-01-29)
PROC: 3E0T3BZ Introduction of Anesthetic Agent into Peripheral Nerves and Plexi, Percutaneous Approach (ICD-10-PCS; 2021-01-30)
DX: O76 Abnormality in fetal heart rate and rhythm complicating labor and delivery (principal); O86.12 Endometritis following delivery; O99.62 Diseases of the digestive system complicating childbirth; Z37.0 Single live birth; Z3A.38 38 weeks gestation of pregnancy; O75.0 Maternal distress during labor and delivery; Z20.822 Contact with and (suspected) exposure to COVID-19; K21.9 Gastro-esophageal reflux disease without esophagitis
CPT/HCPCS: 36415; 59025; 74018; 80053; 82803; 83615; 84112; 84550; 85025; 85027; 86592; 86850; 86900; 86901; 88307; 99211; G0378; G0463; J0290; J0595; J0690; J1100; J1580; J1885; J2210; J2270; J2405; J2590; J3105; J7030; J7120; U0003